=== PATIENT | male | born 1990 | race Caucasian/White ===

== ENCOUNTER 2023-10-27 09:59 | Emergency (ER) | payer OTHER ==
[~2023-10-27] VITALS: Ht 182.9 cm; Wt 115.7 kg
[2023-10-27] MEDS ORDERED: Acetaminophen 500 MG Tab PO ONE (11:25)
[2023-10-27] MEDS ORDERED: Ibuprofen 600 MG Tab PO ONE (11:25)
[2023-10-27] MEDS ORDERED: IBUP800 PO (11:28)
== END 2023-10-27 11:41 | disposition home or self-care (01) ==
LOC: ER 09:59
DX: K08.89 Other specified disorders of teeth and supporting structures (principal); Z88.0 Allergy status to penicillin
CPT/HCPCS: 99282; A9270

== ENCOUNTER 2023-10-28 16:45 | Emergency (ER) | payer OTHER ==
[~2023-10-28] VITALS: Ht 185.4 cm; Wt 104.3 kg
[~2023-10-28 16:45] MED LIST: IBUP800 PO
== END 2023-10-28 18:40 | disposition home or self-care (01) ==
LOC: ER 16:45
DX: K08.89 Other specified disorders of teeth and supporting structures (principal); Z88.0 Allergy status to penicillin
CPT/HCPCS: 64400; 99282-25